=== PATIENT | male | born 1965 | race Caucasian/White ===

== ENCOUNTER 2017-02-24 08:01 | Emergency (ER) | payer OTHER ==
[~2017-02-24] VITALS: Ht 170.2 cm; Wt 72.7 kg
[~2017-02-24 08:01] MED LIST: JANUMET 50/51 TABLET PO; LIPITOR20 MG PO; VYTORIN 10-101 EACH PO
[2017-02-24 08:41] LABS: HEMATOCRIT 50.9 % (38.0-50.0); MCH 29.6 PG (29.0-34.0); MCHC 36.1 G/DL (30.0-36.0); MCV 81.8 FL (86-99); MEAN PLAT.VOLUME 9.6 uM^3 (9.0-12.4); PLATELET COUNT 360 K/uL (156-360); RBC DIS.WIDTH-SD 35.8 % (39-53); RED BLOOD COUNT 6.22 M/uL (4.00-5.50); WHITE BLOOD COUNT 12.9 K/uL (4.1-10.2)
[2017-02-24] MEDS ORDERED: ASPIR 8181 M1 PO (08:42)
[2017-02-24 09:09] LABS: ANION GAP 21 MEQ/L (2-14); CHLORIDE 86 MEQ/L (99-109); POTASSIUM 4.1 MEQ/L (3.7-5.4); SAMPLE HEMOLYSIS CHECK 0; SAMPLE ICTERIC CHECK 0; SAMPLE LIPEMIA CHECK 0; SODIUM 130 MEQ/L (136-147); TOTAL BILIRUBIN 1.3 MG/DL (0.0-1.0)
[2017-02-24 09:15] LABS: ALKALINE PHOSPHATASE 67 IU/L (3-129); GFR ESTIMATE (CALCULATED) > 59 mL/min/; GLUCOSE 260 mg/dL (70-99); LIPASE 15 U/L (1.0-51.0); UREA NITROGEN (BUN) 21 mg/dL (9-23)
[2017-02-24 09:54] LABS: ADD MIUA? YES; BILIRUBIN NEGATIVE; BLOOD SMALL; COLOR YELLOW ((YELLOW)); GLUCOSE (STRIP) >=500; KETONES 80; LEUKOCYTES NEGATIVE; NITRITE NEGATIVE; PROTEIN (STRIP) 30; UROBILINOGEN 0.2 MG/DL (0.2-1.0)
[2017-02-24 10:06] LABS: BACTERIA NONE SEEN /HPF; EPITHELIAL CELLS RARE /HPF; GRANULAR CASTS 0-5 /LPF; HYALINE CASTS 0-5 /LPF; MUCUS NONE SEEN /LPF; RED BLOOD CELLS 0-5 /HPF (0-5); UCUL ADDED? NO; WHITE BLOOD CELLS 0-5 /HPF (0-5)
[2017-02-24 12:53] VITALS: BP 151/95
[2017-02-24] MEDS ORDERED: PROTONIX20 MG PO (12:56)
[2017-02-24] MEDS ORDERED: ZOFRAN ODT4 MG PO (12:56)
== END 2017-02-24 13:14 | disposition home or self-care (01) ==
LOC: EME 08:01
DX: R11.2 Nausea with vomiting, unspecified (principal); R19.7 Diarrhea, unspecified; R10.9 Unspecified abdominal pain; E86.0 Dehydration; E11.9 Type 2 diabetes mellitus without complications; E78.5 Hyperlipidemia, unspecified; I10 Essential (primary) hypertension; Z79.84 Long term (current) use of oral hypoglycemic drugs
CPT/HCPCS: 80053; 81003; 83690; 85027; 99281; 99285; J2405; J7030